=== PATIENT | female | born 1990 | race Asian ===

== ENCOUNTER 2016-08-24 18:58 | Emergency (ER) | payer OTHER ==
[2016-08-24 19:07] VITALS: BP 116/80
--- NOTE | 2016-08-24 19:18 | UC ---
Respiratory Complaint HPI - HPI Summary HPI Summary: epigastrium pain and feeling of a lump in her throat, happen this afternoon and it happened one time last week---she feels SOB when this happens--no fevrs chills nausea or vomiting food seems to make it worse - History of Current Complaint Hx Obtained From: Patient Hx Last Menstrual Period: inplanon ?: No Timing: Constant Severity Initially: Moderate Severity Currently: Moderate Aggravating Factors: Nothing Alleviating Factors: Nothing Associated Signs And Symptoms: Positive: Negative <Freda Nguyen - Last Filed: 08/24/16 20:06> <Shiela Cabrera - Last Filed: 08/25/16 09:44> - History of Current Complaint Chief Complaint: UCRespiratory Stated Complaint: SOB Time Seen by Provider: 08/24/16 19:20 - Allergies/Home Medications Allergies/Adverse Reactions: Allergies Allergy/AdvReac Type Severity Reaction Status Date / Time No Known Allergies Allergy Verified 08/24/16 19:07 Home Medications: Home Medications Etonogestrel IMPLANT(NF) [Implanon (NF)-not available] 68 mg IMPLANT 08/24/16 [ History] PMH/Surg Hx/FS Hx/Imm Hx Previously Healthy: Yes - Surgical History Surgical History: None - Family History Known Family History: Positive: None - Social History Occupation: Student Lives: With Family Alcohol Use: Rare Substance Use Type: None Smoking Status (MU): Never Smoked Tobacco <Freda Nguyen - Last Filed: 08/24/16 20:06> Review of Systems Constitutional: Negative Skin: Negative Eyes: Negative ENT: Negative Respiratory: Negative Cardiovascular: Chest Pain Gastrointestinal: Abdominal Pain Genitourinary: Negative Motor: Negative Neurovascular: Negative Musculoskeletal: Negative Neurological: Negative Psychological: Negative All Other Systems Reviewed And Are Negative: Yes <Freda Nguyen - Last Filed: 08/24/16 20:06> Physical Exam Triage Information Reviewed: Yes Appearance: Well-Appearing, No Pain Distress, Well-Nourished Vital Signs: Initial Vital Signs Temp 99.7 F 08/24/16 19:00 Pulse 112 08/24/16 19:00 Resp 18 08/24/16 19:00 BP 116/80 08/24/16 19:00 Pulse Ox 100 08/24/16 19:00 Vital Signs Reviewed: Yes Eye Exam: Normal Eyes: Positive: Conjunctiva Clear ENT Exam: Normal ENT: Positive: Normal ENT inspection, Hearing grossly normal, Pharynx normal, TMs normal. Negative: Nasal congestion, Nasal drainage, Tonsillar swelling, Tonsillar exudate, Trismus, Muffled/hoarse voice Dental Exam: Normal Neck exam: Normal Neck: Positive: Supple, Nontender, No Lymphadenopathy Respiratory Exam: Normal Respiratory: Positive: Chest non-tender, Lungs clear, Normal breath sounds, No respiratory distress, No accessory muscle use Cardiovascular Exam: Normal Cardiovascular: Positive: RRR, No Murmur, Pulses Normal, Brisk Capillary Refill Abdominal Exam: Normal Abdomen Description: Positive: Soft, Other: - epigastric pain,. Negative: Nontender, No Organomegaly, CVA Tenderness (R), CVA Tenderness (L) Bowel Sounds: Positive: Present Musculoskeletal Exam: Normal Musculoskeletal: Positive: Strength Intact, ROM Intact, No Edema Neurological Exam: Normal Neurological: Positive: Alert, Muscle Tone Normal Psychological Exam: Normal Psychological: Positive: Normal Response To Family, Age Appropriate Behavior Skin Exam: Normal <Freda Ngueyn - Last Filed: 08/24/16 20:06> Vital Signs: Initial Vital Signs Temp 99.7 F 08/24/16 19:00 Pulse 112 08/24/16 19:00 Resp 18 08/24/16 19:00 BP 116/80 08/24/16 19:00 Pulse Ox 100 08/24/16 19:00 <Sihela Cabrera - Last Filed: 08/25/16 09:44> UC Diagnostic Evaluation - Laboratory O2 Sat by Pulse Oximetry: 100 - Radiology Xray Interpretation: No Acute Changes Radiology Interpretation Completed By: Radiologist <Freda Nguyen - Last Filed: 08/24/16 20:06> Re-Evaluation - Re-Evaluation First Eval Change: Improved <Freda Nguyen - Last Filed: 08/24/16 20:06> Respiratory Course/Dx - Course Course Of Treatment: follow with pcp, begin prilosec, bland type diet - Differential Dx/Diagnosis Differential Diagnosis/HQI/PQRI: Lower Resp Infection, Other - gerd, acid reflux , fatigue Provider Diagnoses: Acid reflux, gerd, fatigue <Freda Nguyen - Last Filed: 08/24/16 20:06> Discharge <Freda Nguyen - Last Filed: 08/24/16 20:06> <Shiela Cabrera - Last Filed: 08/25/16 09:44> - Discharge Plan Condition: Stable Disposition: HOME Prescriptions: Omeprazole CAP* [Prilosec CAP* 20 MG] 20 mg PO BEDTIME #30 cap.dr Patient Education Materials: Diet for Stomach Ulcers and Gastritis (ED), Gastroesophageal Reflux Disease (ED) Referrals: Yudy Gandara MD [Medical Doctor] - 1 Week Attestation Statement User Type: Provider - I was available for consult. This patient was seen by the GLO. The patient was not presented to, seen by, or examined by me. -Machelle <Shilea Cabrera - Last Filed: 08/25/16 09:44>
[2016-08-24] MEDS ORDERED: Lidocaine 2% VISCOUS* 15 ML UDC PO ONE (19:19)
[2016-08-24] MEDS ORDERED: Al Hydrox/Mg Hydrox/Simet LIQ* 30 ML UDC PO ONE (19:19)
--- NOTE | 2016-08-24 20:19 | RAD ---
HISTORY: Shortness of breath COMPARISONS: None VIEWS: 4: Frontal dual-energy and lateral views of the chest. FINDINGS: CARDIOMEDIASTINAL SILHOUETTE: The cardiomediastinal silhouette is normal. LYNDA: The lynda are normal. PLEURA: The costophrenic angles are sharp. No pleural abnormalities are noted. LUNG PARENCHYMA: The lungs are clear. ABDOMEN: The upper abdomen is clear. There is no subphrenic gas. BONES AND SOFT TISSUES: No bone or soft tissue abnormalities are noted. OTHER: None. IMPRESSION: NO ACTIVE CARDIOPULMONARY DISEASE.
== END 2016-08-24 20:50 | disposition home or self-care (01) ==
LOC: UCEAST 18:58
DX: K21.9 Gastro-esophageal reflux disease without esophagitis (principal); R53.83 Other fatigue
CPT/HCPCS: 71020; 81003; 84702; 99212; A9270-GY; G0463

== ENCOUNTER 2018-05-29 21:50 | Emergency (ER) | payer OTHER ==
[2018-05-29 22:20] VITALS: BP 126/82
[2018-05-29] MEDS ORDERED: Lidocaine 2% VISCOUS* 15 ML UDC PO ONE (22:51)
[2018-05-29] MEDS ORDERED: Al Hydrox/Mg Hydrox/Simet LIQ* 30 ML UDC PO ONE (22:51)
--- NOTE | 2018-05-29 22:51 | UC ---
Abdominal Pain Female HPI - HPI Summary HPI Summary: 28-year-old woman comes in with a chief complaint of epigastric pain that is burning in nature the last 2 days. It's also complaining of fatigue and shortness of breath for about a week. The abdominal pain shortness of breath is worse at night when she lays down. It's less bad when she is up walking around. About 2 years ago she had a similar episode and it got better with antacid medications. She also has a history of constipation where she doesn't have a bowel movement for 1-2 weeks. She reports she has seen a GI doctor for this. No fevers or chills. No chest pain. - History of Current Complaint Chief Complaint: UCGI Stated Complaint: HEARTBURN Time Seen by Provider: 05/29/18 22:32 Hx Last Menstrual Period: [id number] Pain Intensity: 7 Allergies/Adverse Reactions: Allergies Allergy/AdvReac Type Severity Reaction Status Date / Time No Known Allergies Allergy Verified 05/29/18 22:20 PMH/Surg Hx/FS Hx/Imm Hx Previously Healthy: Yes GI/ History: Gastroesophageal Reflux - Surgical History Surgical History: None - Family History Known Family History: Positive: None - Social History Alcohol Use: Rare Substance Use Type: None Smoking Status (MU): Never Smoked Tobacco Review of Systems All Other Systems Reviewed And Are Negative: Yes Constitutional: Positive: Fatigue Skin: Positive: Negative Eyes: Positive: Negative ENT: Positive: Negative Respiratory: Positive: Shortness Of Breath Cardiovascular: Positive: Negative Gastrointestinal: Positive: Abdominal Pain, Nausea Genitourinary: Positive: Negative Motor: Positive: Negative Neurovascular: Positive: Negative Musculoskeletal: Positive: Negative Neurological: Positive: Negative Psychological: Positive: Negative Is Patient Immunocompromised?: No Physical Exam Triage Information Reviewed: Yes Appearance: Well-Appearing, Well-Nourished, Pain Distress - MILD Vital Signs: Initial Vital Signs Temp 99.0 F 05/29/18 22:15 Pulse 83 05/29/18 22:15 Resp 16 05/29/18 22:15 BP 126/82 05/29/18 22:15 Pulse Ox 98 05/29/18 22:15 Vital Signs Reviewed: Yes Eye Exam: Normal Eyes: Positive: Conjunctiva Clear ENT: Positive: Pharynx normal Neck exam: Normal Neck: Positive: Supple Respiratory: Positive: Lungs clear, Normal breath sounds, No respiratory distress Cardiovascular: Positive: RRR Abdomen Description: Positive: Other: - TENDER TO PALPATION EPIGASTRIM. Bowel Sounds: Positive: Present Musculoskeletal Exam: Normal Musculoskeletal: Positive: Strength Intact, ROM Intact Neurological Exam: Normal Neurological: Positive: Alert, Muscle Tone Normal Psychological Exam: Normal Psychological: Positive: Age Appropriate Behavior Skin Exam: Normal Abd Pain Female Course/Dx - Course Course Of Treatment: Patient's symptoms are consistent with GERD with aspiration when she lays down flat at night causing her shortness of breath. Plan is to treat with omeprazole twice a day. Patient also has constipation I recommended Citrucel or Metamucil. Also follow-up with gastroenterology. Reevaluation sooner if worse or any questions or concerns. - Differential Dx/Diagnosis Provider Diagnosis: GERD (gastroesophageal reflux disease), Abdominal pain, Constipation Discharge - Sign-Out/Discharge Documenting (check all that apply): Patient Departure All imaging exams completed and their final reports reviewed: No Studies - Discharge Plan Condition: Stable Disposition: HOME Prescriptions: Omeprazole 20 mg PO BID #30 capsule. Ondansetron ODT TAB* [Zofran 4 MG Odt TAB*] 4 mg PO Q6H PRN #10 tab.odt PRN Reason: Nausea Patient Education Materials: Constipation (ED), Gastroesophageal Reflux Disease (ED), Acute Abdominal Pain (ED) Referrals: [facility]ERR[facility] [Outside] Bill Oliveros DO [Doctor of Osteopathy] - Additional Instructions: FOLLOW UP WITH GASTROENTEROLOGY. TRY OVER THE COUNTER METHYLCELLULOSE (CITRUCEL) OR PSYLLIUM (METAMUCIL) FOR YOUR CONSTIPATION. GO TO THE EMERGENCY DEPARTMENT IF YOUR CONDITION WORSENS; PAIN, FEVER, BLOOD IN YOUR STOOL OR VOMIT OR ANY QUESTIONS OR CONCERNS. - Billing Disposition and Condition Condition: STABLE Disposition: Home
[2018-05-29] MEDS ORDERED: Pantoprazole TAB * 40 MG TAB PO ONE (22:52)
== END 2018-05-29 23:17 | disposition home or self-care (01) ==
LOC: UCEAST 21:50
DX: K21.9 Gastro-esophageal reflux disease without esophagitis (principal); K59.00 Constipation, unspecified; R10.13 Epigastric pain; R06.02 Shortness of breath; R53.83 Other fatigue
CPT/HCPCS: 99212; A9270-GY; G0463

== ENCOUNTER 2018-11-29 17:10 | Emergency (ER) | payer OTHER ==
[2018-11-29 17:33] LABS: ABS Basophils 0.1 10^3/ul (0-0.2); ABS Eosinophils 0.1 10^3/ul (0-0.6); ABS Lymphocytes 1.8 10^3/ul (1.0-4.8); ABS Monocytes 0.7 10^3/ul (0-0.8); ABS Neutrophils 4.5 10^3/ul (1.5-7.7); Eosinophil % 0.9 %; Hematocrit 41 % (35-47); Hemoglobin 13.7 g/dL (12.0-16.0); Lymphocyte % 24.9 %; Mean Corpuscular HGB Conc 34 g/dL (31-36); Mean Corpuscular Hemoglobin 31 pg (27-31); Mean Corpuscular Volume 92 fL (80-97); Nucleated Red Blood Cells % 0.1; Platelet Count 182 10^3/uL (150-450); Red Blood Count 4.42 10^6 /uL (3.70-4.87); Red Cell Distribution Width 12 % (10-15); White Blood Count 7.1 10^3/uL (3.5-10.8)
--- NOTE | 2018-11-29 17:46 | ED ---
Palpitations / Dysrhythmia - HPI Summary HPI Summary: 28-year-old female presents with palpitations today. States that she's been having palpitations intermittently for a couple seconds. States that today it lasted 10 minutes. She denies any chest pressure or shortness breath with it. No dizziness. No nausea vomiting. No recent illness. No sore throat. No cough. No fevers. No family history of cardiac disease. She did not pass out. She states her palpitations have resolved. Denies any drug use. She does not smoke. No recent travel. - History of Current Complaint Chief Complaint: EDDysrhythmPalp Time Seen by Provider: 11/29/18 17:36 - Allergy/Home Medications Allergies/Adverse Reactions: Allergies Allergy/AdvReac Type Severity Reaction Status Date / Time No Known Allergies Allergy Verified 05/29/18 22:20 PMH/Surg Hx/FS Hx/Imm Hx Endocrine/Hematology History: Denies: Hx Anticoagulant Therapy Respiratory History: Denies: Hx Asthma Infectious Disease History: No Infectious Disease History: Denies: Traveled Outside the [place] in Last 30 Days - Family History Known Family History: Positive: None Negative: Cardiac Disease - Social History Alcohol Use: Rare Substance Use Type: Reports: None Hx Tobacco Use: No Smoking Status (MU): Never Smoked Tobacco Review of Systems Negative: Fever Positive: Palpitations. Negative: Chest Pain Negative: Shortness Of Breath All Other Systems Reviewed And Are Negative: Yes Physical Exam Triage Information Reviewed: Yes Vital Signs On Initial Exam: Initial Vitals Temp Pulse Resp BP Pulse Ox 98.6 F 132 16 145/98 100 11/29/18 17:12 11/29/18 17:12 11/29/18 17:12 11/29/18 17:12 11/29/18 17:12 Vital Signs Reviewed: Yes Appearance: Positive: Well-Appearing Skin: Positive: Warm, Dry Head/Face: Positive: Normal Head/Face Inspection Eyes: Positive: Normal, Conjunctiva Clear ENT: Positive: Pharynx normal Respiratory/Lung Sounds: Positive: Clear to Auscultation, Breath Sounds Present Cardiovascular: Positive: Normal, RRR Neurological: Positive: Normal Psychiatric: Positive: Normal Procedures - Sedation Patient Received Moderate/Deep Sedation with Procedure: No Diagnostics - Vital Signs Vital Signs Temp Pulse Resp BP Pulse Ox 11/29/18 17:12 98.6 F 132 16 145/98 100 - Laboratory Lab Results: Lab Results 11/29/18 11/29/18 Range/Units 17:20 17:20 WBC 7.1 (3.5-10.8) 10^3/uL RBC 4.42 (3.70-4.87) 10^6 /uL Hgb 13.7 (12.0-16.0) g/dL Hct 41 (35-47) % MCV 92 (80-97) fL MCH 31 (27-31) pg MCHC 34 (31-36) g/dL RDW 12 (10-15) % Plt Count 182 (150-450) 10^3/uL MPV 10.0 (7.4-10.4) fL Neut % (Auto) 63.2 % Lymph % (Auto) 24.9 % [place] % (Auto) 10.1 % Eos % (Auto) 0.9 % Baso % (Auto) 0.9 % Absolute Neuts (auto) 4.5 (1.5-7.7) 10^3/ul Absolute Lymphs (auto) 1.8 (1.0-4.8) 10^3/ul Absolute Monos (auto) 0.7 (0-0.8) 10^3/ul Absolute Eos (auto) 0.1 (0-0.6) 10^3/ul Absolute Basos (auto) 0.1 (0-0.2) 10^3/ul Absolute Nucleated RBC 0.0 10^3/ul Nucleated RBC % 0.1 INR (Anticoag Therapy) 1.10 H (0.82-1.09) Result Diagrams: 11/29/18 17:20 11/29/18 17:20 Lab Statement: Any lab studies that have been ordered have been reviewed, and results considered in the medical decision making process. - EKG No standard instances Cardiac Rate: Tachycardia EKG Rhythm: Sinus Tachycardia Summary of EKG Findings: sinus tachycardia rate 100 Course/Dx - Course Course Of Treatment: 28-year-old female presents with palpitations today. States that she's been having palpitations intermittently for a couple seconds. States that today it lasted 10 minutes. She denies any chest pressure or shortness breath with it. No dizziness. No nausea vomiting. No recent illness. No sore throat. No cough. No fevers. No family history of cardiac disease. She did not pass out. She states her palpitations have resolved. Denies any drug use. She does not smoke. No recent travel. On exam lung CTA. Patient is in a sinus rhythm in the room. no murmur. EKG shows sinus tachycardia rate of 100. wbc normal. Potassium is low at 2.8 so we will give supplement. Magnesium level was 1.8 so gave supplement. thyroid is normal. D- dimer negative. Troponin 0. We'll discharge on potassium supplements. Told if symptoms continue to follow up with cardiology. Patient understands agrees with plan. - Diagnoses Differential Diagnosis/HQI/PQRI: Positive: Hypokalemia, Panic Disorder, Other Provider Diagnoses: Palpitations, Hypokalemia Discharge ED - Sign-Out/Discharge Documenting (check all that apply): Patient Departure - Discharge Plan Condition: Good Disposition: HOME Prescriptions: Potassium Chlor TAB* [Potassium Chlor TAB 20 MEQ*] 20 meq PO DAILY #5 tab.er Patient Education Materials: Heart Palpitations (DC), Hypokalemia (ED) Referrals: Yudy Gandara MD [Primary Care Provider] - Additional Instructions: take potassium once a day for 5 days eat more potassium rich food like bananas or leafy green vegetables follow up with primary within 5 days Return to ED if develop any new or worsening symptoms - Billing Disposition and Condition Condition: GOOD Disposition: Home - Attestation Statements Provider Attestation: I was available for consultation for this patient. I did not evaluate the patient or participate in any medical decision making or disposition decisions unless I am specifically named in the chart as having consulted on the patient. If I have consulted on the patient, please see my own ED note on the patient encounter. Allison Chavez MD
[2018-11-29 17:52] LABS: ALT 11 U/L (7-52); AST 16 U/L (13-39); Albumin 4.6 g/dL (3.2-5.2); Albumin/Globulin Ratio 1.3 (1-3); Alkaline Phosphatase 54 U/L (34-104); Anion Gap 7 mmol/L (2-11); BUN/Creatinine Ratio 10.6 (8-20); Blood Urea Nitrogen 7 mg/dL (6-24); CO2 Carbon Dioxide 24 mmol/L (22-32); Calcium 9.6 mg/dL (8.6-10.3); Chloride 106 mmol/L (101-111); EGFR Non-African American 107.4 (>60); Globulin 3.5 g/dL (2-4); Glucose 103 mg/dL (70-100); Potassium 2.8 mmol/L (3.5-5.0); Sodium 137 mmol/L (135-145); Total Protein 8.1 g/dL (6.4-8.9)
[2018-11-29 18:10] LABS: Magnesium 1.8 mg/dL (1.9-2.7)
[2018-11-29] MEDS: Potassium Chloride* LIQUID 20 MEQ/15 ML UDC PO ONE (18:16)
[2018-11-29 18:18] LABS: HCG Pregnancy < 0.60 mIU/mL
[2018-11-29 18:24] LABS: TSH (Thyroid Stimulating Horm) 3.26 mcIU/mL (0.34-5.60)
[2018-11-29] MEDS: Magnesium Chloride EC TAB* 64 MG PO ONE (18:28)
[2018-11-29 18:41] VITALS: BP 109/80
== END 2018-11-29 18:34 | disposition home or self-care (01) ==
LOC: ED 17:10
DX: R00.2 Palpitations (principal); E87.6 Hypokalemia
CPT/HCPCS: 36415; 80053; 83735; 84443; 84484; 84702; 85025; 85379; 85610; 93005; 99282; A9270-GY

== ENCOUNTER 2018-12-14 21:11 | Emergency (ER) | payer OTHER ==
--- OUTSIDE RECORDS SUMMARY | 2018-12-14 22:03 | XMS REPORT | Continuity of Care Document ---
:1990 External Reference #:[id number] Author Name Yudy Gandara M.D. 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 Medicine Problems Active Problems Provider Date Constipation Loli Shepard NP Onset: 06/16/2018 Non-erosive gastro-esophageal reflux disease Loli Shepard NP Onset: 2018 Epigastric pain Loli Shepard NP Onset: 06/16/2018 Social History Type Date Description Comments Sex Unknown Tobacco Use Start: Unknown Never Smoked Cigarettes Smoking Status Reviewed: 12/11/18 Never Smoked Cigarettes ETOH Use Denies alcohol use Tobacco Use Start: Unknown Patient has never smoked Recreational Drug Use Denies Drug Use Exercise Type/Frequency Does not exercise Allergies, Adverse Reactions, Alerts Description No Known Drug Allergies Medications Active Medications SIG Qnty Indications Ordering Provider Date Potassium Chloride Emelina ER Every Day 5tabs Unknown 11/29/2018 20Meq Tablets ER History Medications Fibercon one to two tablets 60tabs Loli Shepard NP 06/30/2018 - 625mg Tablets daily 12/11/2018 Miralax please take 17 357gm Loli Shepard NP 06/30/2018 - 3350NF Powder grams in a drink of 12/11/2018 your choice. one/two drinks as directed. Ranitidine 150 1-2 tablets at hour 30tabs Loli Shepard NP 06/16/2018 - Maximum Strength of sleep as 12/11/2018 150mg directed Tablets Immunizations CPT Code Status Date Vaccine Lot # [id number] Given 12/11/2018 Influenza Virus Vaccine, Quadrivalent ([id number]), [id number] Derived From Cell Vital Signs Date Vital Result Comment 12/11/2018 9:56am Height 61 inches 5'1" Weight 95.00 lb Heart Rate 77 /min BP Systolic Sitting 112 mmHg BP Diastolic Sitting 67 mmHg O2 % BldC Oximetry 90 % some SOB stated BMI (Body Mass Index) 17.9 kg/m2 06/30/2018 3:21pm Height 61 inches 5'1" Weight 94.00 lb Heart Rate 86 /min BP Systolic 97 mmHg BP Diastolic 65 mmHg O2 % BldC Oximetry 98 % BMI (Body Mass Index) 17.8 kg/m2 Results Test Acquired Date Facility Test Result H/L Range Note Laboratory test 12/11/2018 [facility] Potassium 3.8 mmol/L Normal 3.5-5.[address] [place] [phone] Vitamin B12 594 pg/mL Normal 180-914 1 HIV 1&2 p24 12/11/2018 [facility] HIV 4th Nonreactive Nonreactive Screen [address] [place] [address] [place] [address] [phone] Laboratory 12/11/2018 [facility] Magnesium 1.9 mg/dL Normal 1.9-2.7 test finding [address] [place] [address] [phone] CBC Auto 11/29/2018 [facility] White Blood 7.1 10^3/uL Normal 3.5-10.8 Diff [address] [facility] [place] [address] [phone] Red Blood Count 4.42 10^6/uL Normal 3.70-4.87 Hemoglobin 13.7 g/dL Normal 12.0-16.0 Hematocrit 41 % Normal 35-47 Mean Corpuscular Volume 92 fL Normal 80-97 Mean Corpuscular Hemoglobin 31 pg Normal 27-31 Mean Corpuscular HGB Conc 34 g/dL Normal 31-36 Red Cell Distribution Width 12 % Normal 10-15 Platelet Count 182 10^3/uL Normal 150-450 Mean Platelet Volume 10.0 fL Normal 7.4-10.4 Abs Neutrophils 4.5 10^3/uL Normal 1.5-7.7 Abs Lymphocytes 1.8 10^3/uL Normal 1.0-4.8 Abs Monocytes 0.7 10^3/uL Normal 0-0.8 Abs Eosinophils 0.1 10^3/uL Normal 0-0.6 Abs Basophils 0.1 10^3/uL Normal 0-0.2 Abs Nucleated RBC 0.0 10^3/uL Granulocyte % 63.2 % Lymphocyte % 24.9 % Monocyte % 10.1 % Eosinophil % 0.9 % Basophil % 0.9 % Nucleated Red Blood Cells % 0.1 Inr/Protime 11/29/2018 [facility] Inr 1.10 High 0.82-1.[address] [place] [address] [phone] Laboratory 11/29/2018 [facility] D Dimer < 200 Normal Less Than 3 test finding [address] Quantitative ng/mL [address] [place] [address] [phone] Comp Metabolic 11/29/2018 [facility] Sodium 137 Normal 135- [address] mmol/[place] [address] [phone] Potassium 2.8 mmol/L Low 3.5-5.0 Chloride 106 mmol/L Normal 101-111 Co2 Carbon Dioxide 24 mmol/L Normal 22-32 Anion Gap 7 mmol/L Normal 2-11 Glucose 103 mg/dL High 70-100 Blood Urea Nitrogen 7 mg/dL Normal 6-24 Creatinine 0.66 mg/dL Normal 0.51-0.95 BUN/Creatinine Ratio 10.6 Normal 8-20 Calcium 9.6 mg/dL Normal 8.6-10.3 Total Protein 8.1 g/dL Normal 6.4-8.9 Albumin 4.6 g/dL Normal 3.2-5.2 Globulin 3.5 g/dL Normal 2-4 Albumin/Globulin Ratio 1.3 Normal 1-3 Total Bilirubin 0.60 mg/dL Normal 0.2-1.0 Alkaline Phosphatase 54 U/L Normal 34-104 Alt 11 U/L Normal 7-52 Ast 16 U/L Normal 13-39 Egfr Non- 107.4 >60 Egfr 130.0 >60 4 Laboratory test 11/29/2018 [facility] Troponin-I (TnI) 0.00 ng/ mL <0.04 [address] [place] [address] [phone] Magnesium 1.8 mg/dL Low 1.9-2.7 HCG < 0.60 mIU/mL 6 TSH (Thyroid Stim Horm) 3.26 mcIU/mL Normal 0.34-5.60 Laboratory test 06/17/2018 [facility] HCG < 0.60 mIU/ mL [address] [place] [address] [phone] 1 Normal Range 180 to 914 Indeterminate Range 145 to 180 Deficient Range <145 2 Standard intensity warfarin therapeutic range: 2.0-3.0 High intensity warfarin therapeutic range: 2.5-3.5 3 Please note: The following may produce a false positive D Dimer test: - Rheumatoid factor greater than 60 IU/ml - Plasma hemoglobin greater than 0.05 gm/dl - Bilirubin greater than 50 mg/dl - Lipids greater than 1000 mg/dl - FDP greater than 20 ug/ml 4 Because ethnic data is not always readily available, this report includes an eGFR for both -Americans and non- Americans. The National Kidney Disease Education Program (NKDEP) does not endorse the use of the MDRD equation for patients that are not between the ages of 18 and 70, are , have extremes of body size, muscle mass, or nutritional status, or are non- or non-. According to the National Kidney Foundation, irrespective of diagnosis, the stage of the disease is based on the level of kidney function: Stage Description GFR(mL/min/1.73 m(2)) 1 Kidney damage with normal or decreased GFR 90 2 Kidney damage with mild decrease in GFR 60-89 3 Moderate decrease in GFR 30-59 4 Severe decrease in GFR 15-29 5 Kidney failure <15 (or dialysis) 5 Troponin-I testing on Plasma Separator Tubes (PST) has a known false positive rate of 0.20-0.40%. All positive troponins reflex immediately to secondary confirmatory testing. Using the [employer] DxI 800 Access Immunoassay systems, the 99th percentile upper reference limit was demonstrated to be < 0.03 ng/mL. 6 <5.0 Negative 5.0 - 25.0 Indeterminate (Repeat testing recommended after 72 hours) >25.0 Positive Perimenopausal women can display HCG levels of up to 20 mIU/mL 7 <5.0 Negative 5.0 - 25.0 Indeterminate (Repeat testing recommended after 72 hours) >25.0 Positive Perimenopausal women can display HCG levels of up to 20 mIU/mL Procedures Date Code Description Status 06/18/2018 95112 Holter Monitor Review (24 hr)dr garcia & porfirio only Completed Medical Devices Description No Information Available Encounters Type Date Location Provider Dx Diagnosis Office Visit 06/30/2018 [facility] Loligeovanny Shepard, K59.00 Constipation, 3:15p [employer]ACHINE [employer]OL [employer] unspecified R53.83 Other fatigue Office 06/16/2018 [facility] Loli K21.0 Gastro-esophageal Visit 11:00a Shepard, MACHINE [employer]OL [employer]ESSER reflux disease with esophagitis K59.00 Constipation, unspecified Assessments Date Code Description Provider 12/11/2018 R00.2 Palpitations Yudy Gandara M.D. 12/11/2018 E87.6 Hypokalemia uYdy Gandara M.D. 12/11/2018 K21.0 Gastro-esophageal reflux disease with Yudy Gandara M.D. esophagitis 12/11/2018 R53.83 Other fatigue Yudy Gandara M.D. 12/11/2018 Z23 Encounter for immunization Yudy Gandara M.D. 06/30/2018 K59.00 Constipation, unspecified Loli Shepard, MACHINE [employer]OL [employer]ESSER 06/30/2018 R53.83 Other fatigue Loli Shepard, MACHINE TOOL DRESSER 06/18/2018 I49.1 Atrial premature depolarization Mamadou Dominguez M.D. 06/16/2018 K21.0 Gastro-esophageal reflux disease with Loli Tomers, [employer]ACHINE [employer]ESSER esophagitis 06/16/2018 K59.00 Constipation, unspecified Loli Shepard, MACHINE TOOL DRESSER Plan of Treatment Future Appointment(s):03/12/2019 3:00 pm - [facility] - Yudy Gandara M.D.R00.2 PalpitationsReferral: Isrrael Hernandez DO, FACC, Cardiovsclr ZceqjmlK07.6 GfrphkjhabzQ35.0 Gastro- esophageal reflux disease with esophagitisComments:star taking omeprazole 20 mg daily 30 min before breakfast for 4-6 [id number] Other [id number] Encounter for immunization Functional Status Description No Information Available Mental Status Description No Information Available Referrals Refer to Dr Reason for Referral Status Appt Date Isrrael Hernandez DO, FACC Sent 03/12/[address] [place], [place] [id number] [phone]
--- OUTSIDE RECORDS SUMMARY | 2018-12-14 22:03 | XMS REPORT | Continuity of Care Document ---
:1990 External Reference #:[id number] Author Name Yudy Gandara M.D. (transmitted by agent of provider Clare Lynne) Address [address], [address] [place] [id number] Care Team Providers Name Role Phone Yudy Gandara MD - Internal Care Team Information [employer] [phone] Medicine Problems Active Problems Provider Date Constipation [...] CPT Code Status Date Vaccine Lot # [id number] Given 12/11/2018 Influenza Virus Vaccine, Quadrivalent ([id number]), [id number] Derived From Cell Vital Signs Date Vital [...] Date Facility Test Result H/L Range Note CBC Auto 11/29/2018 [facility] White Blood 7.1 10^3/uL Normal 3.5-10.[address] [place] [address] [phone] Red Blood Count 4.42 10^6/uL Normal 3.70-4.87 [...] Red Blood Cells % 0.1 Inr/Protime 11/29/2018 [facility] Inr 1.10 High 0.82-1.[address] [place] [address] [phone] Laboratory 11/29/2018 [facility] D Dimer < 200 Normal Less Than 2 test finding [address] Quantitative ng/mL [address] [place] [address] [phone] Comp Metabolic 11/29/2018 [facility] Sodium 137 Normal 135- [address] mmol/[place] [address] [phone] Potassium 2.8 mmol/L Low 3.5-5.0 Chloride 106 [...] Egfr Non- 107.4 >60 Egfr 130.0 >60 3 Laboratory test 11/29/2018 [facility] Troponin-I (TnI) 0.00 ng/ mL <0.04 4 finding [address] [place] [address] [phone] Magnesium 1.8 mg/dL Low 1.9-2.7 HCG < 0.60 mIU/mL 5 TSH (Thyroid Stim Horm) 3.26 mcIU/mL Normal 0.34-5.60 Laboratory test 06/17/2018 [facility] HCG < 0.60 mIU/ mL 6 finding [address] [place] [address] [phone] 1 Standard intensity warfarin therapeutic range: 2.0-3.0 High intensity warfarin therapeutic range: 2.5-3.5 2 Please note: The following may produce a false positive D Dimer test: - Rheumatoid factor greater than 60 IU/ml - Plasma hemoglobin greater than 0.05 gm/dl - Bilirubin greater than 50 mg/dl - Lipids greater than 1000 mg/dl - FDP greater than 20 ug/ml 3 Because ethnic data is not always readily [...] 15-29 5 Kidney failure <15 (or dialysis) 4 Troponin-I testing on Plasma Separator Tubes (PST) has a known false positive rate of 0.20-0.40%. All positive troponins reflex immediately to secondary confirmatory testing. Using the [employer] 800 Access Immunoassay systems, the 99th percentile upper reference limit was demonstrated to be < 0.03 ng/mL. 5 <5.0 Negative 5.0 - 25.0 Indeterminate (Repeat testing recommended after 72 hours) >25.0 Positive Perimenopausal women can display HCG levels of up to 20 mIU/mL 6 <5.0 Negative 5.0 - 25.0 Indeterminate (Repeat testing recommended after 72 hours) >25.0 Positive Perimenopausal women can display HCG levels of up to 20 mIU/mL Procedures Date Code Description Status 06/18/2018 04358 Holter Monitor Review (24 hr)dr garcia & porfirio only Completed Medical Devices Description No Information Available Encounters Type Date Location Provider Dx Diagnosis Office Visit 06/30/2018 [facility] Loli Shepard, K59.00 Constipation, 3:15p [employer] unspecified R53.83 Other fatigue Office 06/16/2018 [facility] Loli K21.0 Gastro-esophageal Visit 11:00a JAGRUTI Shepard reflux disease with esophagitis K59.00 Constipation, unspecified Assessments Date Code Description Provider 12/11/2018 R00.2 Palpitations Yudy Gandara M.D. 12/11/2018 E87.6 Hypokalemia Yudy Gandara M.D. 12/11/2018 K21.0 Gastro-esophageal reflux disease with Yudy Gandara M.D. esophagitis 12/11/2018 R53.83 Other fatigue Yudy Gandara M.D. 12/11/2018 Z23 Encounter for immunization Yudy Gandara M.D. 06/30/2018 K59.00 Constipation, unspecified Loli Shepard, [employer] 06/30/2018 R53.83 Other fatigue Loli Shepard NP 06/18/2018 I49.1 Atrial premature depolarization Mamadou Dominguez M.D. 06/16/2018 K21.0 Gastro-esophageal reflux disease with Loli Shepard NP esophagitis 06/16/2018 K59.00 Constipation, unspecified Loli Shepard NP Plan of Treatment 12/11/2018 - Yudy Gandara M.D.R00.2 PalpitationsReferral:Isrrael Hernandez DO, FACC, Cardiovsclr LgzlddjP95.6 WlhixxtyczuG87.0 Gastro-esophageal reflux disease with esophagitisComments:star taking omeprazole 20 mg daily 30 min before breakfast for 4-6 mbmxtW62.83 Other [id number] Encounter for immunization Functional Status Description No Information Available Mental Status Description No Information Available Referrals Refer to Dr Reason for Referral Status Appt Date Isrrael Hernandez DO, FACC [address] [place] [address] [phone]
[2018-12-14] MEDS ORDERED: oxyCODONE TAB* 5 MG TAB PO ONE (22:08)
[2018-12-14] MEDS ORDERED: Bacitracin OINTMENT* 0.5% 0.5 oz TUBE TOPICAL ONE (22:11)
--- NOTE | 2018-12-14 22:22 | ED ---
Skin Complaint - HPI Summary HPI Summary: Patient complains of burn to abdomen after spilling hot water on herself while cooking. Denies any other pain injury or symptoms. - History of Current Complaint Chief Complaint: EDBurnSmokeInh Time Seen by Provider: 12/14/18 21:50 Stated Complaint: BURN TO ABDOMINAL AREA PER PT Hx Obtained From: Patient Hx Last Menstrual Period: [id number] Onset/Duration: Started Minutes Ago Skin Exposure Onset/Duration: Minutes Ago Timing: Constant Onset Severity: Severe Current Severity: Severe Pain Intensity: 10 Pain Scale Used: 0-10 Numeric Skin Location: Abdomen Character: Pain Aggravating Symptom(s): Touch Alleviating Symptom(s): Nothing Associated Signs & Symptoms: Negative - Allergy/Home Medications Allergies/Adverse Reactions: Allergies Allergy/AdvReac Type Severity Reaction Status Date / Time No Known Allergies Allergy Verified 05/29/18 22:20 PMH/Surg Hx/FS Hx/Imm Hx Endocrine/Hematology History: Denies: Hx Anticoagulant Therapy Cardiovascular History: Denies: Hx Pacemaker/ICD Respiratory History: Denies: Hx Asthma History: Denies: Hx Dialysis Sensory History: Denies: Hx Eye Prosthesis Opthamlomology History: Denies: Hx Legally Blind EENT History: Denies: Hx Deafness Infectious Disease History: No Infectious Disease History: Denies: Traveled Outside the [place] in Last 30 Days - Family History Known Family History: Positive: None Negative: Cardiac Disease - Social History Alcohol Use: Rare Substance Use Type: Reports: None Hx Tobacco Use: No Smoking Status (MU): Never Smoked Tobacco Review of Systems Constitutional: Negative Eyes: Negative ENT: Negative Cardiovascular: Negative Respiratory: Negative Gastrointestinal: Negative Genitourinary: Negative Musculoskeletal: Negative Skin: Other Neurological: Negative Psychological: Normal All Other Systems Reviewed And Are Negative: Yes Physical Exam - Summary Physical Exam Summary: Superficial partial-thickness burn of roughly 1/3 of abdomen extending from upper right abdomen down to panty line. Burn is erythematous, blanchable, no blistering. Triage Information Reviewed: Yes Vital Signs On Initial Exam: Initial Vitals Temp Pulse Resp BP Pulse Ox 98.0 F 83 18 121/84 100 12/14/18 21:15 12/14/18 21:15 12/14/18 21:15 12/14/18 21:15 12/14/18 21:15 Vital Signs Reviewed: Yes Appearance: Positive: Well-Appearing Skin: Positive: Warm Head/Face: Positive: Normal Head/Face Inspection Eyes: Positive: Normal Neck: Positive: Supple Respiratory/Lung Sounds: Positive: Clear to Auscultation Cardiovascular: Positive: Normal Abdomen Description: Positive: Other: Musculoskeletal: Positive: Normal Neurological: Positive: Normal Psychiatric: Positive: Normal AVPU Assessment: Alert - Paul Coma Scale Best Eye Response: 4 - Spontaneous Best Motor Response: 6 - Obeys Commands Best Verbal Response: 5 - Oriented Coma Scale Total: 15 Procedures - Sedation Patient Received Moderate/Deep Sedation with Procedure: No Diagnostics - Vital Signs Vital Signs Temp Pulse Resp BP Pulse Ox 12/14/18 21:15 98.0 F 83 18 121/84 100 - Laboratory Lab Statement: Any lab studies that have been ordered have been reviewed, and results considered in the medical decision making process. Course/Dx - Course Course Of Treatment: Patient complains of burn to abdomen after spilling hot water on herself while cooking. Denies any other pain injury or symptoms. Vital signs within normal limits. Rx for oxycodone - Diagnoses Provider Diagnoses: Superficial burn of abdominal wall Discharge ED - Sign-Out/Discharge Documenting (check all that apply): Patient Departure - Discharge Plan Condition: Stable Disposition: HOME Prescriptions: Oxycodone HCl 5 mg PO TID 2 Days #6 tablet MDD 3 tabs Patient Education Materials: Superficial Burn (ED) Referrals: Yudy Gandara MD [Primary Care Provider] - Additional Instructions: Keep area of burn clean, dry and protected. You may wash burn gently with room temperature water and soap. Alternate ibuprofen 400 mg with Tylenol 650 mg every 3 hours as needed for pain. - Billing Disposition and Condition Condition: STABLE Disposition: Home
[2018-12-14 23:01] VITALS: BP 109/77
== END 2018-12-14 23:00 | disposition home or self-care (01) ==
LOC: ED 21:11
DX: T21.12XA Burn of first degree of abdominal wall, initial encounter (principal); X12.XXXA Contact with other hot fluids, initial encounter; Y93.G3 Activity, cooking and baking; Y92.9 Unspecified place or not applicable
CPT/HCPCS: 99282; A9270-GY

== ENCOUNTER 2019-12-13 06:02 | Inpatient (IN) ==
[2019-12-13 06:48] LABS: Urine Benzodiazepine Screen None Detected (None Detect); Urine Cannabinoids Screen None Detected (None Detect); Urine Opiates Screen None Detected (None Detect)
[2019-12-13] MEDS ORDERED: ceFOXitin 2 GM PREMIX 50 ML IVPB ONE (07:00)
[2019-12-13] MEDS ORDERED: Lactated Ringers 1000 ml BAG 1,000 ML IV ONE (07:27)
[2019-12-13] MEDS ORDERED: Buffered Lidocaine 1% SYRIN 1 ml INTRADERM ONE (07:27)
[2019-12-13] MEDS ORDERED: Morphine PF AMP (0.5MG/ML) 5 MG/10 ML AMP ONE (07:34)
[2019-12-13] MEDS ORDERED: fentaNYL 100 mcg/2 ml 50 MCG/ML VIAL ONE (07:34)
[2019-12-13] MEDS ORDERED: EPHEDrine (Pressors) 50 MG/ML VIAL ONE (07:34)
[2019-12-13] MEDS ORDERED: Ondansetron 4 mg VIAL 2 MG/ML 2 ml VIAL ONE (07:35)
[2019-12-13] MEDS ORDERED: diPHENhydraMINE IV 50 MG/ML 1 ml VIAL (BENADRYL) IV PRN (07:36)
[2019-12-13] MEDS ORDERED: Ondansetron 4 mg VIAL 2 MG/ML 2 ml VIAL IV PRN (07:36)
[2019-12-13] MEDS ORDERED: Naloxone 0.4 mg VIAL 0.4 mg/ml 1 ml VIAL IV PRN ×2 (07:36→07:38)
[2019-12-13] MEDS ORDERED: oxyCODONE/Acetamin 5/325 mg TAB PO PRN (07:36)
[2019-12-13] MEDS ORDERED: HYDROmorphone 1 MG/1 ML SYRINGE IV PRN (07:38)
[2019-12-13] MEDS ORDERED: fentaNYL 100 mcg/2 ml 50 MCG/ML VIAL IV PRN (07:38)
[2019-12-13] MEDS ORDERED: Lactated Ringers 1000 ml BAG 1,000 ML IV SCH ×2 (08:00→10:00)
[2019-12-13] MEDS ORDERED: Oxytocin 10 UNITS/ML 1 ML VIAL ONE (08:09)
[2019-12-13] MEDS ORDERED: Acetaminophen IV 1 GM/100ML 1,000 MG/100 ML VIAL IVPB ONE (08:27)
[2019-12-13] MEDS ORDERED: Dibucaine 1% OINT 28.35 GM TUBE PR PRN (09:06)
[2019-12-13] MEDS ORDERED: Glycerin ADULT 2.4 gm SUPP PR PRN (09:06)
[2019-12-13] MEDS ORDERED: Witch Hazel PAD JAR TOPICAL PRN (09:06)
[2019-12-13] MEDS ORDERED: Influenza VAC *QUAD* 2020-21* 0.5 ML SYRINGE IM ONE (10:00)
[2019-12-14 06:51] LABS: ABS Basophils 0.1 10^3/ul (0-0.2); ABS Eosinophils 0.3 10^3/ul (0-0.6); ABS Lymphocytes 1.3 10^3/ul (1.0-4.8); ABS Monocytes 1.1 10^3/ul (0-0.8); ABS Neutrophils 11.6 10^3/ul (1.5-7.7); Eosinophil % 1.7 %; Hematocrit 31 % (35-47); Hemoglobin 10.2 g/dL (12.0-16.0); Lymphocyte % 9.3 %; Mean Corpuscular HGB Conc 34 g/dL (31-36); Mean Corpuscular Hemoglobin 32 pg (27-31); Mean Corpuscular Volume 95 fL (80-97); Mean Platelet Volume 10.1 fL (7.4-10.4); Platelet Count 156 10^3/uL (150-450); Red Blood Count 3.22 10^6 /uL (3.70-4.87); Red Cell Distribution Width 14 % (10-15); White Blood Count 14.4 10^3/uL (3.5-10.8)
[2019-12-14] MEDS ORDERED: Measles, Mumps,Rubella VACC 0.5 ML/VIAL SUBCUT ONE (09:00)
[2019-12-15 08:02] VITALS: BP 106/62
== END 2019-12-15 13:33 | disposition home or self-care (01) | DRG 787 ==
LOC: MCHOB 06:02
PROVIDERS: ADMIT Obstetrics & Gynecology; ATTEND Obstetrics & Gynecology

== ENCOUNTER 2023-02-04 08:59 | Inpatient (IN) ==
[~2023-02-04 08:59] MED LIST: Acetaminophen IV 1 GM/100ML 1,000 MG/100 ML BAG IV PRN; Buffered Lidocaine 1% SYRIN 1 ml INTRADERM ONE; Lactated Ringers 1000 ml BAG 1,000 ML IV SCH; Metoclopramide 5 MG/ML VIAL (10 mg) IV PRN; Naloxone 0.4 mg VIAL 0.4 mg/ml 1 ml VIAL IV PUSH PRN; Ondansetron 4 mg VIAL 2 MG/ML 2 ml VIAL IV PRN; Sodium Citrate/Citric Acid LIQ 15 ML UDC PO ONE
[2023-02-04] MEDS ORDERED: ceFOXitin 2 GM IVPREMIX 2 GM/50 ML BAG IVPB ONE (09:30)
[2023-02-04] MEDS ORDERED: Buffered Lidocaine 1% SYRIN 1 ml INTRADERM ONE (09:30)
[2023-02-04] MEDS ORDERED: Sodium Citrate/Citric Acid LIQ 15 ML UDC PO ONE (09:30)
[2023-02-04] MEDS ORDERED: Lactated Ringers 1000 ml BAG 1,000 ML IV ONE (09:30)
[2023-02-04] MEDS ORDERED: Lactated Ringers 1000 ml BAG 1,000 ML IV SCH ×2 (10:00→13:00)
[2023-02-04 10:05] LABS: Hematocrit 34.8 % (35-45); Mean Corpuscular Hgb Conc 34.3 g/dL (31-36); Mean Corpuscular Volume 93.2 fL (80-97); Platelet Count 178 10^3/uL (150-450); Red Blood Count 3.74 10^6/uL (3.63-4.92); White Blood Count 9.8 10^3/uL (3.8-11.8)
[2023-02-04 10:06] LABS: ABS Eosinophils 0.1 10^3/uL (0.0-0.5); ABS Lymphocytes 1.2 10^3/uL (1.0-4.8); ABS Monocytes 0.9 10^3/uL (0.0-0.9); ABS Neutrophils 7.6 10^3/uL (1.5-7.6); Eosinophil % 1.3 %; Lymphocyte % 12.4 %; Mean Platelet Volume 9.2 fL (7.5-11.2)
[2023-02-04] MEDS ORDERED: Ondansetron 4 mg VIAL 2 MG/ML 2 ml VIAL ONE (10:17)
[2023-02-04] MEDS ORDERED: Morphine PF AMP (0.5MG/ML) 5 MG/10 ML AMP ONE (10:17)
[2023-02-04] MEDS ORDERED: Dexamethasone IV 4 MG/ML VIAL 1 ml VIAL ONE (10:17)
[2023-02-04] MEDS ORDERED: Oxytocin 10 UNITS/ML 1 ML VIAL ONE (10:17)
[2023-02-04 12:13] LABS: Urine Appearance Clear; Urine Bilirubin Negative (Negative); Urine Blood Negative (Negative); Urine Color Straw; Urine Glucose Negative (Negative); Urine Ketones Negative (Negative); Urine Nitrite Negative (Negative); Urine Protein Negative (Negative); Urine Specific Gravity 1.004 (1.002-1.030); Urine Urobilinogen Negative (Negative)
[2023-02-04] MEDS ORDERED: Witch Hazel PAD JAR TOPICAL PRN (12:15)
[2023-02-04] MEDS ORDERED: Glycerin ADULT 2.4 gm SUPP PR PRN (12:15)
[2023-02-04] MEDS ORDERED: Oxytocin in LR 20,000 MILLI.UNIT/1,000 ML BAG IV SCH (12:15)
[2023-02-04] MEDS ORDERED: Dibucaine 1% OINT 28.35 GM TUBE PR PRN (12:15)
[2023-02-04 13:01] LABS: Urine Benzodiazepine Screen None Detected (None Detect); Urine Cannabinoids Screen None Detected (None Detect); Urine Opiates Screen None Detected (None Detect)
[2023-02-05 08:44] LABS: Hematocrit 31.8 % (35-45); Hemoglobin 10.8 g/dL (11.5-14.3); Mean Corpuscular Hgb Conc 34.1 g/dL (31-36); Mean Corpuscular Volume 93.8 fL (80-97); Mean Platelet Volume 9.7 fL (7.5-11.2); Platelet Count 172 10^3/uL (150-450); Red Blood Count 3.39 10^6/uL (3.63-4.92); Red Cell Distribution Width 13.7 % (12-17); White Blood Count 17.5 10^3/uL (3.8-11.8)
[2023-02-05] MEDS ORDERED: Measles, Mumps,Rubella VACC 0.5 ML/VIAL SUBCUT ONE (09:00)
[2023-02-05] MEDS ORDERED: Influenza vaccine *QUAD* *2023-24* 0.5 ML SYRINGE IM ONE (09:32)
[2023-02-05 09:47] LABS: ABS Basophils 0.1 10^3/uL (0.0-0.1); ABS Eosinophils 0.1 10^3/uL (0.0-0.5); ABS Lymphocytes 2.1 10^3/uL (1.0-4.8); ABS Monocytes 1.6 10^3/uL (0.0-0.9); ABS Neutrophils 13.7 10^3/uL (1.5-7.6); ABS Nucleated RBC 0.01 10^3/ul; Eosinophil % 0.5 %; Lymphocyte % 11.8 %
[2023-02-06 09:57] VITALS: BP 100/61
== END 2023-02-06 13:20 | disposition home or self-care (01) | DRG 540 ==
LOC: MCHOB 08:59
PROVIDERS: ADMIT Obstetrics & Gynecology; ATTEND Obstetrics & Gynecology